=== PATIENT | male | born 1970 | race Two or more races ===

== ENCOUNTER 2025-09-25 19:31 | Emergency (ER) | payer MEDICAID, OTHER ==
[~2025-09-25] VITALS: Ht 167.6 cm; Wt 74.4 kg
[2025-09-25 19:33] VITALS: BP 167/106; PULSE 78; RESP 18; TEMP 97.4; O2SAT 97
[2025-09-25] MEDS ORDERED: CLOP75TA28 PO (19:48)
--- NOTE | 2025-09-25 19:50 | ED.PDOC ---
HPI Comments 55-year-old male presents to the ED chief complaint medication refill. Patient requesting refill of his 75 mg Plavix tabs. States has been without his medication x2 months due to insurance overlapping. Patient states he is currently on Plavix due to quadruple bypass done two years ago. He does state was taking off baby aspirin and then just put on Plavix alone however he has been taking at least his 81 mg baby aspirin. Denies any concerns or complaints he notes no chest pain difficulty breathing or shortness of breath. Chief Complaint: Medical Clearance Time Seen by MD: 19:42 Reviewed Notes: Nurses Notes, Medications, Allergies Home Meds Active Scripts Clopidogrel Bisulfate (Plavix) 75 Mg Tab, 1 TAB PO DAILY for 30 Days, #30 TAB Prov:FLORENCIO CHEW PRINCE 09/25/25 Information Source: Patient Mode of Arrival: Ambulatory All Other Systems: Reviewed and Negative (See HPI) Physical Exam General Appearance: No Apparent Distress, Normal HEENT: Pharynx Normal Neck: Full Range of Motion, Non-Tender Respiratory: Lungs Clear, No Respiratory Distress, Normal Breath Sounds Cardiovascular: No Edema, No JVD, No Murmur, No Gallop, Normal Peripheral Pulses, Regular Rate/Rhythm Breast Exam: Deferred Gastrointestinal: No Organomegaly, Non Tender, No Pulsatile Mass, Normal Bowel Sounds, Soft Genitalia: Deferred Pelvic: Deferred Rectal: Deferred Extremities: Normal inspection, Normal range of motion, No pedal edema Musculoskeletal : Apperance: Normal Neurologic: Alert, No Motor Deficits, Normal Affect, Normal Mood, No Sensory Deficits Cerebellar Function: Normal Reflexes: Normal Skin: Dry, Normal Color, Warm Lymphatic: No Adenopathy Was a procedure done? Was a procedure done?: No CP Differential Dx Differential Diagnosis: N/A Differential Diagnosis: N/A Differential Diagnosis: Angina X-Ray, Labs, Meds, VS Vital Signs Date Time Temp Pulse Resp B/P (MAP) Pulse Ox O2 Delivery O2 Flow Rate FiO2 09/25/25 19:33 Room Air 09/25/25 19:33 97.4 78 18 167/106 97 97.4 X-Ray, Labs, Meds, VS Comment Script patient's Plavix 75 mg once daily times 30 days. Advised follow up with his tonal regulator for further refills. Precautions given patient indicates understanding agrees with discharge plan of care. Time of 1ST Reevaluation: 19:42 Reevaluation 1ST: Unchanged Time of 2ND Reevaluation: 19:49 Reevaluation 2ND: Improved Patient Education/Counseling: Diagnosis, Treatment, Need For Follow Up Family Education/Counseling: No Family Present SEPSIS Sepsis Screen Date sepsis recognized/suspect: Sep 25, 2025 Time Sepsis recognized/suspect: 1935 Recent Procedure: No On Antibiotic Therapy: No Respiratory Rate >20: No Heart Rate >90: No Temp<36 C (96.8 F) or >38.3 C: No SBP <90 or MAP <65 mmHG: No New Acute Mental Status Change: No Is the patient on CPAP, BIPAP,: No Vital Signs Date Time Temp Pulse Resp B/P (MAP) Pulse Ox O2 Delivery O2 Flow Rate FiO2 09/25/25 19:33 Room Air 09/25/25 19:33 97.4 78 18 167/106 97 97.4 Departure 1 Departure Time of Disposition: 19:47 Impression: Primary Impression: Encounter for medication refill Additional Impression: Hx of [facility] use of blood thinners Disposition: 01 HOME / SELF CARE / HOMELESS Condition: Stable e-Prescriptions Clopidogrel Bisulfate (Plavix) 75 Mg Tab 1 TAB PO DAILY for 30 Days, #30 TAB Prov: FLORENCIO CHEW 09/25/25 Discharged With: Self Critical Care Note Critical Care Time?: No Stability Stability form required: No Heart Score Heart Score: Heart Score Response (Comments) Value History N/A 0 EKG N/A 0 Age 45-64 1 Risk Factors N/A 0 Troponin >3 x's Normal limit 2 Total 3 FLORENCIO CHEW Sep 25, 2025 19:50
== END 2025-09-25 19:58 | disposition home or self-care (01) ==
LOC: ER 19:31
DX: Z76.0 Encounter for issue of repeat prescription (principal); Z79.01 Long term (current) use of anticoagulants

== ENCOUNTER 2025-10-18 12:31 | Emergency (ER) | payer MEDICAID ==
[~2025-10-18] VITALS: Ht 157.5 cm; Wt 73.4 kg
[~2025-10-18 12:31] MED LIST: CLOP75TA28 PO
--- NOTE | 2025-10-18 14:11 | ED.PDOC ---
Back pain HPI HPI Comments The patient presented with pain and swelling in the left leg after hitting it on rebar. The patient reported hitting the left tibia on rebar a couple of days ago. The patient noted swelling upon waking and described the pain in the leg as throbbing, with a severity of about nine out of ten. The patient did not report pain in the foot, only bruising. The patient had not taken any medication for the pain prior to the visit. Denies any other symptoms at this time. Chief Complaint: Lower Extremity Time Seen by MD: 14:00 Reviewed Notes: Nurses Notes, Medications, Allergies Allergies: Coded Allergies: NO KNOWN ALLERGIES (Unverified , 10/18/25) Home Meds Active Scripts Clopidogrel Bisulfate (Plavix) 75 Mg Tab, 1 TAB PO DAILY for 30 Days, #30 TAB Prov:FLORENCIO CHEW PRINCE 09/25/25 Information Source: Patient Mode of Arrival: Ambulatory Timing: Hours Duration: Since onset, Hours Radiates to: Anterior: (B) Calf Severity: Moderate Prehospital treatment: None Quality: Aching Onset: Blunt Trauma Circumstance: Work Related Associated signs and symptoms: None Past Medical History PAST MEDICAL HISTORY: DM, High Lipids Surgical History (Other): Triple Bypass Family History Family History: Reviewed,noncontributory to illness, Unknown Social History Smoker: Non-Smoker Alcohol: Denies ETOH Use Drugs: Denies Drug Use Lives In: Home Constitutional: denies: chills, diaphoresis, fatigue, fever, malaise, sweats, weakness, others EENTM: denies: blurred vision, double vision, ear bleeding, ear discharge, ear drainage, ear pain, ear ringing, eye pain, eye redness, hearing loss, mouth pain, mouth swelling, nasal discharge, nose bleeding, nose congestion, nose pain, photophobia, tearing, throat pain, throat swelling, voice changes, others Respiratory: denies: cough, hemoptysis, orthopnea, SOB at rest, shortness of breath, SOB with excertion, stridor, wheezing, others Cardiovascular: denies: chest pain, dizzy spells, diaphoresis, Dyspnea on exertion, edema, irregular heart beat, left arm pain, lightheadedness, palpitations, PND, syncope, others Gastrointestinal: denies: abdomen distended, abdominal pain, blood streaked bowels, constipated, diarrhea, dysphagia, difficulty swallowing, hematemesis, melena, nausea, poor appetite, poor fluid intake, rectal bleeding, rectal pain, vomiting, others Genitourinary: denies: burning, dysuria, flank pain, frequency, hematuria, incontinence, penile discharge, penile sore, pain, testicle pain, testicle swelling, urgency, others Neurological: denies: dizziness, fainting, headache, left sided numbness, left sided weakness, numbness, paresthesia, pre-existing deficit, right sided numbness, right sided weakness, seizure, speech problems, tingling, tremors, weakness, others Musculoskeletal: reports: others (Left tibia pain s/p blunt trauma); denies: back pain, gout, joint pain, joint swelling, muscle pain, muscle stiffness, neck pain Integumetry: denies: bruises, change in color, change in hair/nails, dryness, laceration, lesions, lumps, rash, wounds, others Allergic/Immunocompromised: denies: Difficulty Healing, Frequent Infections, Hives, Itching, others Hematologic/Lymphatic: denies: anemia, blood clots, easy bleeding, easy bruising, swollen glands, others Endocrine: denies: excessive hunger, excessive sweating, excessive thirst, excessive urination, flushing, intolerance to cold, intolerance to heat, unexplained weight gain, unexplained weight loss, others Psychiatric: denies: anxiety, bipolar disorder, depression, hopeless, panic disorder, schizophrenia, sleepless, suicidal, others All Other Systems: Reviewed and Negative Physical Exam Exam Comments Contusion and a one centimeter wound to the left tibial shaft with surrounding swelling. Musculoskeletal: Tenderness upon palpation of the left tibia, full range of motion in the left ankle, strong dorsiflexion and plantarflexion, no pain to the Achilles, patient able to move the phalanges, mild bruising to the volar aspect of the metatarsal. Integumentary: No erythema, no streaking. General Appearance: No Apparent Distress, Normal HEENT: Normal ENT Inspection, Pharynx Normal, TMs Normal Neck: Full Range of Motion, Non-Tender, Normal, Normal Inspection Respiratory: Chest Non-Tender, Lungs Clear, No Accessory Muscle Use, No Respiratory Distress, Normal Breath Sounds Cardiovascular: No Edema, No JVD, No Murmur, No Gallop, Normal Peripheral Pulses, Regular Rate/Rhythm Breast Exam: Deferred Gastrointestinal: No Organomegaly, Non Tender, No Pulsatile Mass, Normal Bowel Sounds, Soft Genitalia: Deferred Pelvic: Deferred Rectal: Deferred Extremities: No calf tenderness, Normal capillary refill, Normal inspection, Normal range of motion, Non-tender, No pedal edema Musculoskeletal : Apperance: Normal Neurologic: Alert, playroom attendant II-XII nml as Tested, No Motor Deficits, Normal Affect, Normal Mood, No Sensory Deficits Cerebellar Function: Normal Reflexes: Normal Skin: Dry, Normal Color, Warm Lymphatic: No Adenopathy Was a procedure done? Was a procedure done?: No X-Ray, Labs, Meds, VS Vital Signs Date Time Temp Pulse Resp B/P (MAP) Pulse Ox O2 Delivery O2 Flow Rate FiO2 10/18/25 12:35 97.6 95 17 132/78 95 97.6 Current Medications Medications (Trade) Dose Ordered Sig/Whit Route Start Time Stop Time Status Last Admin Ketorolac Tromethamine (Toradol Injection) 30 mg ONCE ONCE IM 10/18/25 14:15 10/18/25 14:16 DC 10/18/25 14:49 X-Ray, Labs, Meds, VS Comment Patient arrives alert and oriented, ABC's intact, afebrile, vital signs stable, saturating well in room air ASSESSMENT: The patient presented with pain and swelling in the left leg, likely due to contusion and minor wound following trauma from hitting the leg on rebar. The visible contusion, presence of a wound on the tibial shaft, and tenderness upon palpation support the diagnosis. The absence of erythema and streaking reduces the likelihood of infection. PLAN: Treatment: - Administered a Toradol shot for pain management. Tests: - Ordered X-rays for further evaluation of the injury. Patient Education: - Informed the patient about the normalcy of bruising and the potential need for imaging if pain persists. Follow-Up: - Planned to review X-ray results and provide further care based on findings. Disposition: - Instructed the patient to wait in the front lobby for X-ray and subsequent consultation. Additional MDM Review of External, Non-ED records: External records reviewed. Discussion with independent historian (EMS, family) history obtained from the patient/parents (if applicable) at bedside Chronic conditions affecting care: None Social determinants of health affecting care: None Consideration of admission (observation or admission): I considered escalation of care to admission for this patient, however given the reassuring workup, the patient is safe for outpatient management. Discussion with the Radiology: No Tests considered but not performed: Prescription medication considered but not given: 12 lead EKG interpretation: Time of 1ST Reevaluation: 14:30 Reevaluation 1ST: Unchanged Patient Education/Counseling: Diagnosis, Treatment, Prognosis Family Education/Counseling: No Family Present SEPSIS Sepsis Screen Date sepsis recognized/suspect: Oct 18, 2025 Time Sepsis recognized/suspect: 1237 Recent Procedure: No On Antibiotic Therapy: No Respiratory Rate >20: No Heart Rate >90: No Temp<36 C (96.8 F) or >38.3 C: No SBP <90 or MAP <65 mmHG: No New Acute Mental Status Change: No Is the patient on CPAP, BIPAP,: No Physician Orders L Tib Fib Xray (10/18/25 14:01) Vital Signs Date Time Temp Pulse Resp B/P (MAP) Pulse Ox O2 Delivery O2 Flow Rate FiO2 10/18/25 12:35 97.6 95 17 132/78 95 97.6 Medications Medications Dose Ordered Sig/Whit Route Start Time Stop Time Status Last Admin Dose Admin Ketorolac Tromethamine 30 mg ONCE ONCE IM 10/18/25 14:15 10/18/25 14:16 DC 10/18/25 14:49 Departure 1 Departure Time of Disposition: 15:05 Impression: Primary Impression: Contusion of left tibia Disposition: 01 HOME / SELF CARE / HOMELESS Condition: Stable e-Prescriptions Cephalexin Monohydrate (Cephalexin) 500 Mg Cap 1 CAP PO QID for 5 Days, #20 CAP 0 Refills Prov: ENE SIGALA NP 10/18/25 Ibuprofen (Ibuprofen) 600 Mg Tab 1 TAB PO TID for 10 Days, #30 TAB 0 Refills Prov: ENE SIGALA NP 10/18/25 Discharged With: Self Critical Care Note Critical Care Time?: No Stability Stability form required: No I personally scribed for ENE SIGALA NP ([email or web address]) on 10/18/25 at 14:11. Electronically submitted by Frank Capps ([email or web address]). ENE SIGALA NP Oct 18, 2025 14:11
[2025-10-18] MEDS: KETOROLAC TROMETH 30 MG/ML 1ML VIAL IM ONE (14:49)
--- NOTE | 2025-10-18 15:00 | DVH ---
CLINICAL INDICATION: R/o fracture TECHNIQUE: AP and lateral views of the left lower leg were performed. XY L TIB FIB XRAY Comparison: None FINDINGS/IMPRESSION: 1. Postoperative changes of left tibial intramedullary nail fixation with healed proximal tibial diaphyseal fracture. No evidence of hardware failure or complication. 2. No fractures are identified about the left fibula. 3. Postoperative changes of left femoral intramedullary nail fixation, not fully imaged here.
[2025-10-18] MEDS ORDERED: IBUP-1454 PO (15:07)
[2025-10-18] MEDS ORDERED: CEPH500C PO (15:07)
[2025-10-18 15:43] VITALS: BP 149/81; PULSE 89; RESP 18; TEMP 98.2; O2SAT 97
== END 2025-10-18 15:45 | disposition home or self-care (01) ==
LOC: ER 12:31
DX: S80.12XA Contusion of left lower leg, initial encounter (principal); E11.9 Type 2 diabetes mellitus without complications; X58.XXXA Exposure to other specified factors, initial encounter; Y93.89 Activity, other specified; Y92.89 Other specified places as the place of occurrence of the external cause; Y99.8 Other external cause status
CPT/HCPCS: 73590; 96372; 99283; J1885